=== PATIENT | male | born 1995 | race Asian ===

== ENCOUNTER 2018-07-23 00:11 | Emergency (ER) | payer OTHER ==
[~2018-07-23] VITALS: Ht 180.3 cm; Wt 79.8 kg
[2018-07-23 00:18] VITALS: BP 120/71; Ht 180.3 cm; Wt 79.8 kg
== END 2018-07-23 01:11 | disposition home or self-care (01) ==
LOC: ED 00:11
DX: T21.29XA Burn of second degree of other site of trunk, initial encounter (principal); T31.0 Burns involving less than 10% of body surface; F90.9 Attention-deficit hyperactivity disorder, unspecified type; X10.0XXA Contact with hot drinks, initial encounter; Y93.89 Activity, other specified; Y92.89 Other specified places as the place of occurrence of the external cause; Y99.8 Other external cause status
CPT/HCPCS: J1885